=== PATIENT | female | born 1965 | race African-American/Black ===

== ENCOUNTER 2019-08-27 22:30 | Emergency (ER) | payer BC, OTHER ==
--- OUTSIDE RECORDS SUMMARY | 2019-08-27 22:33 | XMS REPORT | Continuity of Care Document ---
:1965 Author Organization [facility] t Address [address] [place] [address] [address]. Pat[address]io [address] [place] [address] Care Team Providers Name Role Phone Arturo ALEGRIA, Crispin Primary Care Physician Unavailable Ángel GORE Attending Clinician Unavailable Ángel GORE Admitting Clinician Unavailable Problems Condition Condition Condition Status Onset Resolution Last Treating Co mments Source Name Details Category Date Date Treatment Clinician Date Ventral Ventral Disease Active [facility]: Medical 00 [place] Allergies, Adverse Reactions, Alerts Allergy Allergy Status Severity Reaction(s) Onset Inactive Treating Comm ents Source Name Type Date Date Clinician Shellfis Drug Active Nausea Only, eyes [facility] Allergy Swelling 4[facility]09 [facility] - Containi 00:00: Medical ng 00 [place] Products Penicill Drug Active Itching, [facility] Allergy Rash 2-18 [facility] 00:[facility]: Medical 00 [place] Family History Family Member Diagnosis Comments Start Date Stop Date Source Natural mother COPD [facility] Social History Social Habit Start Date Stop Date Quantity Comments Source Sex Assigned At [facility] Smoking Status Start Date Stop Date Source Never smoker [facility] Medications Ordered Filled Start Stop Current Ordering Indication Dosage Frequency Signature Comments Components Source Medication Medication Date Date Medication? Clinician (SIG) Name Name dicyclomine Yes 10mg Take [address] [facility] (BENTYL) 10 4-23 by mouth 4 Jazz kes - MG capsule 14:27: (four) Medic al 26 times Center daily as needed . naproxen 2018-0 Yes 500mg Take [address] [facility] (NAPROSYN) 3-02 mg by [facility] - 500 MG 09:36: mouth as Medical tablet 46 needed. [place] hydroCHLORO 2018-0 Yes 25mg Q.5W Take [address] [facility] thiazide 3-02 by mouth [facility] - (HYDRODIURI 09:36: twice a Med ical L) 12.5 MG 46 week. [place] tablet multivitami 2018-0 Yes 1{tbl} QD Take [address] n 3-02 tablet by [facility] - (MULTIVITAM 09:36: mouth Medic al IN) per 46 daily. [place] tablet METAXALONE 2013-0 Yes 800mg Take [address] ORAL 4-09 mg by [facility] - 10:32: mouth as Medical 27 needed. [place] Procedures This patient has no known procedures. Results Test Description Test Time Test Comments Results Result Comments Source TISSUE EXAM 2017-06-11 Surgical Pathology 13:49:00 Report Case: [id number] Authorizing Provider: Papi Gore MD Collected: 06/10/2017 1358 Ordering Location: [facility] Endoscopy Received: 06/10/2017 1552 Services Pathologist: Andry Vinson MD Specimens: A) - Duodenum, random B) - Biopsy, Gastric C) - Polyp, Colon - Right/Ascending D) - Rectum A. DUODENUM, BIOPSY: - DUODENAL MUCOSA WITH PRESERVED VILLOUS ARCHITECTURE AND NO SIGNIFICANT DIAGNOSTIC ALTERATION - NEGATIVE FOR FEATURES OF CELIAC DISEASEB. STOMACH, BIOPSY: - CHRONIC ACTIVE HELICOBACTER PYLORI GASTRITIS - NEGATIVE FOR INTESTINAL METAPLASIA, DYSPLASIA, MALIGNANCYC. COLON, RIGHT/ASCENDING POLYP, BIOPSY: - TUBULAR ADENOMAD. RECTUM, BIOPSY: - COLORECTAL MUCOSA WITH NO SIGNIFICANT DIAGNOSTIC ABNORMALITY Signing Pathologist Direct Phone Line: [phone] ically signed by Andry Vinson MD on 06/11/2017 at 1:49 PMB. Warthin-starry stain for Helicobacter pylori is positive.[id number] 2Blood in stool, change in bowel habitsA. Duodenum random biopsy B. Gastric biopsyC. Right ascending colon polyp D. Rectum biopsy Specimen is received in two containers of formalin both labeled with the patient's information.Part A labeled "random duodenum biopsy" consists of three fragments of vargas tissue ranging from 0.1 to 0.3 cm submitted A1.Part B labeled "gastric biopsy" consists of two fragments of vargas-white soft tissue measuring 0.1 and 0.2 cm submitted B1. Part C labeled "right ascending colon polyp" consists of a 0.2 cm round fragment of vargas-white soft tissue submitted C1.Part D labeled "rectum biopsy" consists of two fragments of vargas tissue measuring 0.1 and 0.2 cm submitted D1. CG/bc Performed. HCG, QUANTITATIVE, 2017-06-10 14:32:00 Test Item Value Reference Range Interpretation Comme nts GONADOTROPIN, CHORIONIC (HCG) QUANT (ORVIBO) (test code = 649) < mI U/mL 0-10 Non- Females: <10 mIU/mL Females: Gestation Age Reference Range(mIU/mL) 0.2-1 Week 5-50 1-2 Weeks 50-500 2-3 Weeks 100-5,000 3-4Weeks 500-10,000 4-5 Weeks 1,000-50,000 5-6 Weeks 10,000-100,000 6-8 Weeks 15,000-200,000 2-3 Months 10,000-100,[id number] 13:12:00 Test Item Value Reference Range Interpretation Comments POC-POTASSIUM 3.8 meq/L 3.6-5.5 TESTED AT [facility] C 6720 (ORVIBO) (test code [facility] [address] = 1540)
--- OUTSIDE RECORDS SUMMARY | 2019-08-27 22:33 | XMS REPORT | Clinical Summary ---
:1965 Author Organization [facility] Address [address] [place] [address] Care Team Providers Name Role Phone Crispin Morris MD Primary Care Provider Unavailable Allergies Active Allergy Reactions Severity Noted Date Comments Penicillins Itching, Rash Low 04/06/2013 Shellfish Containing Products Nausea Only, Swelling eyes Medications Medication Sig Dispensed Refills Start Date End Date Status METAXALONE ORAL Take 800 mg 0 Ac tive by mouth as needed. dicyclomine (BENTYL) 10 MG Take 10 mg by 0 Active capsule mouth 4 (four) times daily as needed . naproxen (NAPROSYN) 500 MG Take 500 mg 0 Active tablet by mouth as needed. hydroCHLOROthiazide Take 25 mg by 0 Active (HYDRODIURIL) 12.5 MG mouth twice a tablet week. multivitamin (MULTIVITAMIN) Take 1 tablet 0 Active per tablet by mouth daily. Active Problems Problem Noted Date Ventral hernia 06/02/2013 Family History Medical History Relation Name Comments COPD Mother Relation Name Status Comments Mother Social History Tobacco Use Types Packs/Day Years Used Date Never Smoker Smokeless Tobacco: Never Used Alcohol Use Drinks/Week oz/Week Comments No Sex Assigned at Date Recorded Not on file Job Start Date Occupation Industry Not on file Not on file Not on file Travel History Travel Start Travel End No recent travel history available. Last Filed Vital Signs Not on file Plan of Treatment Not on file Implants Implanted Type Area Occupational Therapy Instructor Device Shelf Model / Identifier Expiration Date Ser ial / Lot Patch,Hernia Ventralex St Large [place] W/Strap 3.2 (8.0cm) - [id number] Mesh N/A: Abdomen 12/17/2014 [id number] / Implanted: Qty: 1 on 06/02/2013 by Jonathon Ortez MD / [id number] Results Not on fileafter 08/26/2018 Insurance Payer Benefit Plan / Group Subscriber ID Type Phone A ddress [employer] - [employer] C[employer] [facility] xxxxxxxxxxx HMO/POS Advance Directives For more information, please contact:[id number] [place], [place] [phone] Code Status Date Activated Date Inactivated Comments Code ONE 06/02/2013 11:53 AM 06/03/2013 1:22 AM All possib le means of support, including: cardi ac massage, mechanical venti lation, and defibrillation w ill be used to support life.
[2019-08-28] MEDS ORDERED: ACETAMINOPHEN 500 MG TAB ONE (00:33)
[2019-08-28 00:56] LABS: Basophils % 0.5 % (0-1.3); Hematocrit 40.4 % (36.0-45.0); Lymphocytes % 47.3 % (15.3-44.8); MPV 10.6 fL (7.6-11.3); RBC Red Blood Cell Count 4.42 M/uL (3.86-4.86)
[2019-08-28 01:05] LABS: Albumin 3.2 g/dL (3.4-5.0); Bilirubin Total 0.4 mg/dL (0.2-1.0); Potassium 4.1 mmol/L (3.5-5.1); Protein, Total 7.9 g/dL (6.4-8.2)
--- NOTE | 2019-08-28 02:49 | EDPHYS ---
Physician Documentation [facility] Name: Ruma Gallego Age: 54 yrs Sex: Female : 1965 Arrival Date: 08/27/2019 Time: 22:43 Bed 7 Private MD: ED Physician Bryant Uriarte HPI: 08/27 00:58 This 54 yrs old Black Female presents to ER via Ambulatory with complaints of Cough, jmm Headache. 00:58 The patient or guardian reports cough. Onset: The symptoms/episode began/occurred jmm gradually, 2 day(s) ago. Modifying factors: The symptoms are alleviated by nothing, the symptoms are aggravated by nothing. This is a 54 year old female that presents to the ED with a frontal headache beginning 2 days ago. Denies fever but admits to a mild cough. Denies sore throat, vomiting, chest pain, shortness of breath. . Historical: - Allergies: 00:35 No Known Allergies; ea - Home Meds: 00:35 None [Active]; ea - Immunization history:: Adult Immunizations up to date. - Social history:: Smoking status: unknown. ROS: 00:58 ENT: Negative for injury, pain, and discharge, Cardiovascular: Negative for chest pain, jmm palpitations, and edema. 00:58 Abdomen/GI: Negative for abdominal pain, nausea, vomiting, diarrhea, and constipation. 00:58 Constitutional: Positive for malaise. 00:58 Respiratory: Positive for cough. 00:58 Neuro: Positive for headache. 00:58 All other systems are negative. Exam: 00:58 Constitutional: This is a well developed, well nourished patient who is awake, alert, jmm and in no acute distress. 00:58 Eyes: EOMI, no conjunctival erythema appreciated ENT: Moist Mucus Membranes Neck: Trachea midline, Supple Chest/axilla: Normal chest wall appearance and motion. Cardiovascular: Regular rate and rhythm. No edema appreciated Respiratory: Normal respirations, no respiratory distress appreciated Abdomen/GI: Non distended, soft Back: Normal ROM Skin: General appearance color normal MS/ Extremity: Moves all extremities, no obvious deformities appreciated, no edema noted to the lower extremities Neuro: Awake and alert, normal gait Psych: Behavior is normal, Mood is normal, Patient is cooperative and pleasant 00:58 Head/face: Noted is Sinus tenderness, that is mild, is located over the right frontal sinus and right ethmoid sinus. Vital Signs: 08/26 22:52 BP 155 / 72; Pulse 92; Resp 18; Temp 97.2; Pulse Ox 97% on R/A; sg 08/27 00:05 BP 139 / 87 LA Sitting (auto/reg); Pulse 74 MON; Resp 22 S; Temp 99.8(A); Pulse Ox 97% ds4 on R/A; Weight 172.37 kg; Height 5 ft. 4 in. (162.56 cm); 02:50 BP 143 / 82; Pulse 78; Resp 20; Pulse Ox 99% on R/A; ea 00:05 Body Mass Index 65.23 (172.37 kg, 162.56 cm) ds4 MDM: 00:16 Patient medically screened. [facility] 02:46 Data reviewed: vital signs, nurses notes. Counseling: I had a detailed discussion with deneen the patient and/or guardian regarding: the historical points, exam findings, and any diagnostic results supporting the discharge/admit diagnosis, lab results, radiology results, the need for outpatient follow up, to return to the emergency department if symptoms worsen or persist or if there are any questions or concerns that arise at home. ED course: Patient;s neck is supple. I do not suspect meningitis. Patient refused strep and covid swab. Patient will follow up with pcp and otherwise given strict return precautions. Patient understood and agrees with the plan of care. . 08/27 00:18 Order name: CBC with Diff; Complete Time: 01:08 [facility] 08/27 00:18 Order name: CMP; Complete Time: 01:08 [facility] 08/27 00:18 Order name: Strep [facility] 08/27 00:18 Order name: [place] Screen Profile; Complete Time: 01:19 [facility] 08/27 00:18 Order name: COVID-19 [facility] 08/27 00:18 Order name: CT Head Brain wo Cont [facility] 08/27 00:18 Order name: Saline Lock; Complete Time: 02:49 [facility] Administered Medications: 00:34 Drug: Tylenol 1000 mg Route: PO; rv 03:05 Follow up: Response: No adverse reaction ea Disposition: 04:26 Co-signature as Attending Physician, Bryant Uriarte MD. [email or web address] Disposition: 08/28/19 02:48 Discharged to Home. Impression: Viral Illness. - Condition is Stable. - Discharge Instructions: COVID-19. - Medication Reconciliation Form, Thank You Letter, Antibiotic Education, Prescription Opioid Use form. - Follow up: Private Physician; When: 2 - 3 days; Reason: Recheck today's complaints, Continuance of care, Re-evaluation by your physician. Signatures: Dispatcher [employer] EDMS Sudhir Espitia PA PA jmm Antunez, Elena, RN RN ea Vicente, Ronaldo, RN RN rv Holmes, Maurice, MD MD [email or web address] Corrections: (The following items were deleted from the chart) 03:06 02:48 08/28/2019 02:48 Discharged to Home. Impression: Viral Illness. Condition is ea Stable. Forms are Medication Reconciliation Form, Thank You Letter, Antibiotic Education, Prescription Opioid Use. Follow up: Private Physician; When: 2 - 3 days; Reason: Recheck today's complaints, Continuance of care, Re-evaluation by your physician. soumya
--- NOTE | 2019-08-28 02:49 | ER ---
Nurse's Notes [facility] Name: Ruma Gallego Age: 54 yrs Sex: Female : 1965 Arrival Date: 08/27/2019 Time: 22:43 Bed 7 Private MD: Diagnosis: Viral Illness Presentation: 08/26 22:52 Acuity: SORAYA 3 sg 22:52 Chief complaint: Patient states: Cough and headache that began a day or two ago, sg reports just not feeling well, denies N/V/D/Fever reports feeling chilled. Coronavirus screen: Patient reports a cough. Patient denies shortness of breath or difficulty breathing. Patient denies measured and/or subjective temperature greater than 100.4F prior to today's visit. Patient denies travel on a cruise ship or to a country the [facility] currently lists as an affected area. Patient denies contact with known and/or suspected case of COVID-19. Ebola Screen: Patient negative for fever greater than or equal to 101.5 degrees Fahrenheit, and additional compatible Ebola Virus Disease symptoms Patient denies exposure to infectious person. Patient denies travel to an Ebola-affected area in the 21 days before illness onset. No symptoms or risks identified at this time. Initial Sepsis Screen: Does the patient meet any 2 criteria? No. Patient's initial sepsis screen is negative. Does the patient have a suspected source of infection? No. Patient's initial sepsis screen is negative. Risk Assessment: Do you want to hurt yourself or someone else? Patient reports no desire to harm self or others. Onset of symptoms was August 25, 2019. Care prior to arrival: None. 22:52 Method Of Arrival: Ambulatory sg Triage Assessment: 08/27 00:36 Headache History: The patient has had previous headaches. General: Appears in no ea apparent distress. General: Behavior is appropriate for age. Pain: Complains of pain in forehead. Historical: - Allergies: 00:35 No Known Allergies; ea - Home Meds: 00:35 None [Active]; ea - Immunization history:: Adult Immunizations up to date. - Social history:: Smoking status: unknown. Screenin:33 Abuse screen: Denies threats or abuse. Nutritional screening: No deficits noted. ea Tuberculosis screening: No symptoms or risk factors identified. Fall Risk None identified. Assessment: 00:32 Reassessment: Pt refused covid and strep swabs. ea 00:34 General: Appears in no apparent distress. Behavior is calm, cooperative, appropriate ea for age. Pain: Complains of pain in forehead. Neuro: Level of Consciousness is awake, alert, obeys commands, Oriented to person, place, time, situation. Cardiovascular: Patient's skin is warm and dry. Respiratory: Airway is patent Respiratory effort is even, unlabored, Respiratory pattern is regular, symmetrical. Derm: Skin is pink, warm \T\ dry. 03:03 Reassessment: Patient and/or family updated on plan of care and expected duration. Pain ea level reassessed. Patient is alert, oriented x 3, equal unlabored respirations, skin warm/dry/pink. Discharge instruction given to patient, verbalized the understanding of instruction. Pt left ED via wheelchair per tech. Pt tolerating well. Vital Signs: 08/26 22:52 BP 155 / 72; Pulse 92; Resp 18; Temp 97.2; Pulse Ox 97% on R/A; sg 08/27 00:05 BP 139 / 87 LA Sitting (auto/reg); Pulse 74 MON; Resp 22 S; Temp 99.8(A); Pulse Ox 97% ds4 on R/A; Weight 172.37 kg; Height 5 ft. 4 in. (162.56 cm); 02:50 BP 143 / 82; Pulse 78; Resp 20; Pulse Ox 99% on R/A; ea 00:05 Body Mass Index 65.23 (172.37 kg, 162.56 cm) ds4 ED Course: 08/26 22:43 Patient arrived in ED. ds1 22:52 Triage completed. sg 23:05 Arm band placed on. sg 23:50 Sudhir Espitia PA is PHCP. jmm 23:50 Bryant Uriarte MD is Attending Physician. jmm 23:55 Drew Bhatia RN is Primary Nurse. rv 08/27 00:34 Patient has correct armband on for positive identification. Bed in low position. Call ea light in reach. Side rails up X2. 00:34 Inserted saline lock: 20 gauge in right antecubital area, using aseptic technique. rv Blood collected. 01:08 CT Head Brain wo Cont In Process Unspecified. EDMS 03:04 No provider procedures requiring assistance completed. IV discontinued, intact, ea bleeding controlled, No redness/swelling at site. Pressure dressing applied. Administered Medications: 00:34 Drug: Tylenol 1000 mg Route: PO; rv 03:05 Follow up: Response: No adverse reaction ea Outcome: 02:48 Discharge ordered by . soumya 03:04 Discharged to home ambulatory. joanna 03:04 Condition: stable 03:04 Discharge instructions given to patient, Instructed on discharge instructions, follow up and referral plans. Demonstrated understanding of instructions, follow-up care. 03:06 Patient left the ED. ea Signatures: Dispatcher [employer] EDJesse Trivedi, RN RN Sudhir Tyler PA PA jmm Sanford, Demi ds1 Natan Kirk ds4 Amalia Levine RN RN ea Vicente, Ronaldo RN RN rv
[2019-08-28 03:16] VITALS: TEMP 99.8
[2019-08-28 03:18] VITALS: BP 143/82; O2SAT 99
--- NOTE | 2019-08-28 17:05 | RAD REPORT ---
EXAM DESCRIPTION: CT - Head Brain Wo Cont - 08/28/2019 3:42 am CLINICAL HISTORY: 54 years Female HEADACHE TECHNIQUE: Contiguous axial CT images obtained through the brain without IV contrast. Coronal and sa gittal reformats also provided. This CT exam was performed according to our departmental dose-optimization program, which includes on e or more of the following dose reduction techniques: automated exposure control, adjustment of the m A and/or kV according to patient size, and/or use of iterative reconstruction technique. COMPARISON: No prior exams provided for comparison. FINDINGS: There is no intracranial hemorrhage, extra-axial collection, or acute transcortical infarction. The v entricles are normal in size and contour without mass-effect or midline shift. Osseous structures are normal. The paranasal sinuses and mastoid air cells are clear. IMPRESSION: No acute intracranial abnormalities. Electronically signed by: Terrie Linda MD 08/28/2019 1:13 AM CDT Due to temporary technical issues with the PACS/Fluency reporting system, reports are being signed by the in house radiologist without review as a courtesy to ensure prompt reporting. The interpreting r adiologist is fully responsible for the content of the report.
== END 2019-08-28 03:06 | disposition home or self-care (01) ==
LOC: ER 22:30
DX: B34.9 Viral infection, unspecified (principal)
CPT/HCPCS: 36415; 70450; 80053; 85025; 86308; 99284

== ENCOUNTER 2023-06-13 11:25 | Emergency (ER) | payer OTHER ==
[2023-06-13] MEDS ORDERED: KETOROLAC 30 MG/ML INJ ONE (12:53)
--- NOTE | 2023-06-13 13:32 | RAD REPORT ---
EXAM DESCRIPTION: CT - Head C Spine Mpr Wo Con - 06/13/2023 1:13 pm CLINICAL HISTORY: Head and neck injury status post trauma. Head and neck pain COMPARISON: None. TECHNIQUE: Computed axial tomography of the head and cervical spine was obtained. Sagittal and coronal reconstruction was performed. All CT scans are performed using dose optimization technique as appropriate and may include automated exposure control or mA/KV adjustment according to patient size. FINDINGS: A few of the images are degraded by artifact. An intracranial bleed is not seen. The ventricles are normal in caliber. No significant hypodensity within the brain. An extra-axial fluid collection is not noted. Mild to moderate ethmoid sinusitis A cervical fracture is not visualized. No dislocation is noted. Bifid spinous process C7 IMPRESSION: No acute intracranial abnormality is seen. A cervical fracture is not visualized. If the patient continues to have symptoms to suggest intracranial /spinal cord pathology then MRI wou ld be recommended
--- NOTE | 2023-06-13 13:41 | EDPHYS ---
Physician Documentation [facility] Name: Ruma Gallego Age: 57 yrs Sex: Female : 1965 Arrival Date: 06/13/2023 Time: 11:25 Bed 9 Private MD: ED Physician Andrey Wei Historical: - Allergies: 06/12 11:35 PENICILLINS; aa5 11:35 SHELLFISH; aa5 - Home Meds: 13:26 None [Active]; tl4 - PMHx: 11:35 None; aa5 - PSHx: 13:26 None; tl4 - Immunization history:: Adult Immunizations unknown. - Infectious Disease History:: Denies. - Social history:: Smoking status: Patient denies any tobacco usage or history of. Vital Signs: 11:34 BP 160 / 70; Pulse 64; Resp 19 S; Temp 97.8(TE); Pulse Ox 100% on R/A; Weight 163.29 kg aa5 (R); Height 5 ft. 3 in. (R); 14:02 BP 135 / 78; Pulse 62; Resp 16; Temp 98.1; Pulse Ox 98% on R/A; tl4 11:34 Body Mass Index 63.77 (163.29 kg, 160.02 cm) aa5 MDM: 12:42 Patient medically screened. rt 06/12 12:47 Order name: CT Head C Spine; Complete Time: 13:33 rt Administered Medications: 12:55 Drug: Ketorolac IM 15 mg IM once Route: IM; Site: left ventrogluteal; tl4 Disposition Summary: 06/13/23 13:41 Discharge Ordered Notes: Location: Home rt Problem: new rt Symptoms: have improved rt Condition: Stable rt Diagnosis - Closed head injury rt Followup: rt - With: Private Physician - When: 2 - 3 days - Reason: Discharge Instructions: - Discharge Summary Sheet rt - Head Injury, Adult rt Forms: - Medication Reconciliation Form rt - Antibiotic Education rt - Prescription Opioid Use rt - Patient Portal Instructions rt - Leadership Thank You Letter rt Prescriptions: - Cyclobenzaprine 5 mg Oral Tablet - take 1 tablet ORAL route 3 times per day As needed; 15 tablet; Refills: 0, rt Product Selection Permitted Signatures: Dispatcher [employer] Daniela Reyes RN RN aa5 Andrey Wei MD MD rt Marck Calderón, RN RN tl4
--- NOTE | 2023-06-13 13:41 | ER ---
Nurse's Notes [facility] Name: Ruma Gallego Age: 57 yrs Sex: Female : 1965 Arrival Date: 06/13/2023 Time: 11:25 Bed 9 Private MD: Diagnosis: Closed head injury Presentation: 06/12 11:33 Chief complaint: Patient states: "the roof came down while I was showering last night aa5 and the curtain rizwan fell right onto the back of my head and my right shoulder". Pt c/o pain to back of head and right shoulder. 11:34 Coronavirus screen: At this time, the client does not indicate any symptoms associated aa5 with coronavirus-19. Ebola Screen: Patient denies travel to an Ebola-affected area in the 21 days before illness onset. Initial Sepsis Screen: Does the patient meet any 2 criteria? No. Patient's initial sepsis screen is negative. Does the patient have a suspected source of infection? No. Patient's initial sepsis screen is negative. Risk Assessment: Do you want to hurt yourself or someone else? Patient reports no desire to harm self or others. Onset of symptoms was May 2023. 11:34 Acuity: SORAYA 4 aa5 11:34 Method Of Arrival: Ambulatory aa5 Historical: - Allergies: 11:35 PENICILLINS; aa5 11:35 SHELLFISH; aa5 - Home Meds: 13:26 None [Active]; tl4 - PMHx: 11:35 None; aa5 - PSHx: 13:26 None; tl4 - Immunization history:: Adult Immunizations unknown. - Infectious Disease History:: Denies. - Social history:: Smoking status: Patient denies any tobacco usage or history of. Screenin:49 [facility] ED Fall Risk Assessment (Adult) History of falling in the last 3 months, tl4 including since admission No falls in past 3 months (0 pts) Confusion or Disorientation No (0 pts) Intoxicated or Sedated No (0 pts) Impaired Gait No (0 pts) Mobility Assist Device Used No (0 pt) Altered Elimination No (0 pt) Score/Fall Risk Level 0 - 2 = Low Risk Oriented to surroundings, Maintained a safe environment, Educated pt \\T\\ family on fall prevention, incl call for assistance when getting out of bed, Assessed \\T\\ reinforced patient's understanding of fall precautions. Abuse screen: Denies threats or abuse. Denies injuries from another. Nutritional screening: No deficits noted. Tuberculosis screening: No symptoms or risk factors identified. Assessment: 12:47 General: Appears in no apparent distress. Behavior is calm, cooperative. Pain: tl4 Complains of pain in back of head and back of neck. Neuro: Level of Consciousness is awake, alert, obeys commands, Oriented to person, place, time, situation, Moves all extremities. Full function Gait is steady, Speech is normal, Denies weakness blurred vision dizziness, paresthesias numbness. Cardiovascular: Capillary refill < 3 seconds Patient's skin is warm and dry. Pulses are palpable in right radial artery and left radial artery are 2+ in right radial artery and left radial artery. Respiratory: Airway is patent Respiratory effort is even, unlabored, Respiratory pattern is regular, symmetrical, Breath sounds are clear bilaterally. GI: No signs and/or symptoms were reported involving the gastrointestinal system. : No signs and/or symptoms were reported regarding the genitourinary system. EENT: No signs and/or symptoms were reported regarding the EENT system. Derm: No signs and/or symptoms reported regarding the dermatologic system. Musculoskeletal: Reports pain in back of head and back of neck. 14:11 Reassessment: No changes from previously documented assessment. Patient and/or family tl4 updated on plan of care and expected duration. Pain level reassessed. Patient is alert, oriented x 3, equal unlabored respirations, skin warm/dry/pink. Vital Signs: 11:34 BP 160 / 70; Pulse 64; Resp 19 S; Temp 97.8(TE); Pulse Ox 100% on R/A; Weight 163.29 kg aa5 (R); Height 5 ft. 3 in. (R); 14:02 BP 135 / 78; Pulse 62; Resp 16; Temp 98.1; Pulse Ox 98% on R/A; tl4 11:34 Body Mass Index 63.77 (163.29 kg, 160.02 cm) aa5 ED Course: 11:29 Patient arrived in ED. im 11:32 Arm band placed on. aa5 11:34 Triage completed. aa5 12:30 Andrey Wei MD is Attending Physician. rt 12:47 Marck Calderón RN is Primary Nurse. tl4 12:49 Patient has correct armband on for positive identification. Bed in low position. Call tl4 light in reach. Side rails up X 1. Provided Education on: ED process. Client placed on continuous cardiac and pulse oximetry monitoring. NIBP monitoring applied. Door closed. Noise minimized. Lights dimmed. Moved to private room. Warm blanket given. Pillow given. 12:50 No provider procedures requiring assistance completed. Patient did not have IV access tl4 during this emergency room visit. 13:14 CT Head C Spine In Process Unspecified. EDMS Administered Medications: 12:55 Drug: Ketorolac IM 15 mg IM once Route: IM; Site: left ventrogluteal; tl4 Medication: 12:49 VIS not applicable for this client. tl4 Outcome: 13:41 Discharge ordered by . rt 14:05 Discharged to home ambulatory, tl4 14:05 Condition: stable 14:05 Discharge instructions given to patient, Instructed on discharge instructions, follow up and referral plans. medication usage, Demonstrated understanding of instructions, follow-up care, medications, Prescriptions given X 1, 14:12 Patient left the ED. tl4 Signatures: Dispatcher [employer] EDMS Daniela Bunch RN RN aa5 Andrey Wei MD MD rt Chary Elkins Marck Calderón RN RN tl4 Corrections: (The following items were deleted from the chart) 11:34 11:33 Chief complaint: Patient states: "the roof came down while I was aa5 aa5
[2023-06-13 14:40] VITALS: BP 135/78; TEMP 98.1; O2SAT 98
== END 2023-06-13 14:12 | disposition home or self-care (01) ==
LOC: ER 11:25
DX: S09.90XA Unspecified injury of head, initial encounter (principal); M54.2 Cervicalgia; M25.511 Pain in right shoulder; Z88.0 Allergy status to penicillin; Z91.013 Allergy to seafood
CPT/HCPCS: 70450; 72125

== ENCOUNTER 2024-04-25 12:19 | Emergency (ER) | payer OTHER ==
--- NOTE | 2024-04-25 13:02 | RAD REPORT ---
Procedure: Chest Single View HISTORY: Cough COMPARISON: none FINDINGS: The lungs appear clear of acute infiltrate. No significant pleural effusion noted. The heart is normal size. IMPRESSION: No acute abnormality is displayed.
[2024-04-25] MEDS ORDERED: ASPIRIN 81 MG CHEWABLE TABLET ONE (13:15)
[2024-04-25] MEDS ORDERED: FAMOTIDINE 20 MG/2 ML VIAL IV ONE (13:15)
[2024-04-25 13:34] LABS: Absolute Eosinophils 0.2 K/uL (0-0.5); Absolute Lymphocytes (CBC) 2.8 K/uL (0.7-4.9); Absolute Monocytes 0.6 K/uL (0.1-1.3); Basophils % 0.7 % (0-1.3); Eosinophils % 2.9 % (0-4.4); Hematocrit 39.9 % (36.0-45.0); Hemoglobin 12.8 g/dL (12.0-15.0); Lymphocytes % 42.2 % (15.3-44.8); MCH 29.7 pg (27.0-35.0); MCHC 32.2 g/dL (32.0-36.0); MCV 92.1 fL (80-100); MPV 9.7 fL (7.6-11.3); Neutrophils % 45.2 % (41.7-73.7); Nucleated Red Blood Cells % 0.1 % (0-0); Platelets 291 thou/uL (152-406); RBC Red Blood Cell Count 4.33 M/uL (3.86-4.86); Red Cell Distribution Width 13.3 % (12.1-15.2)
[2024-04-25 13:39] LABS: PT Prothrombin Time 11.4 SECONDS (10-13.0)
[2024-04-25 13:53] LABS: ALT/SGPT 21 U/L (13-56); AST/SGOT 21 U/L (15-37); Albumin/Globulin Ratio 0.6 (1.1-1.8); Alkaline Phosphatase 93 U/L (45-117); Anion Gap 6.8 mEq/L (5.0-15.0); BUN Blood Urea Nitrogen 13 mg/dL (7-18); Bicarbonate 29 mEq/L (21-32); Bilirubin Total 0.3 mg/dL (0.2-1.0); Globulin 5.2 g/dL (2.3-3.5); Glomerular Filtration Rate 77 ml/min (=/>90); Glucose Level 85 mg/dL (74-106); Lipase 69 U/L (13-75); Magnesium 2.1 mg/dL (1.6-2.4); NT PRO-BNP 23 pg/mL (<125); Potassium 3.8 mEq/L (3.5-5.1); Protein, Total 8.2 g/dL (6.4-8.2); Sodium Level 138 mEq/L (136-145); Troponin High Sensitivity 5.4 pg/mL (<58.9)
[2024-04-25 13:55] LABS: Bilirubin Direct < 0.2 mg/dL (0-0.2); Bilirubin Indirect, Calculated 0.1 mg/dL (0.2-0.8)
[2024-04-25] MEDS ORDERED: DIPHENHYDRAMINE 50 MG/ML VIAL ONE (15:55)
[2024-04-25] MEDS ORDERED: METHYLPREDNISOLONE 125 MG INJ ONE (15:55)
[2024-04-25 16:37] LABS: Specific Gravity > 1.030 (1.005-1.030); Sqamous Epithelial <5 /HPF (None Seen); Urine Bacteria <20 /HPF (<20); Urine Bilirubin NEGATIVE (Negative); Urine Blood Negative (Negative); Urine Clarity Extremely Turbid (Clear); Urine Color Yellow (Yellow); Urine Culture Reflex Order REFLEXED; Urine Glucose NEGATIVE (Negative); Urine Ketones NEGATIVE (Negative); Urine Microscopic Reflex YN ORDER UMIC; Urine Mucus Slight /HPF (None Seen); Urine Nitrite NEGATIVE (Negative); Urine Protein TRACE (Negative); Urine Urobilinogen Normal (Normal); Urine WBC 20-50 /HPF (<5)
--- NOTE | 2024-04-25 16:55 | RAD REPORT ---
EXAMINATION: CTA CHEST PE CLINICAL INDICATION: Chest pain TECHNIQUE: 100 cc 370 Isovue administered intravenously. This examination was performed according to an angiographic protocol with 3D post-processing. This involves 3D reconstructions, MIPs, volume rendered images and/or shaded surface rendering. One or more of the following dose reduction techniqu es were used: Automated exposure control, adjustment of the mA and/or kV according to patient size, and/or iterative reconstruction. Unless otherwise specified, incidental findings do not require dedic ated imaging follow-up. [id number]. COMPARISON: No prior exam. FINDINGS: Suboptimal opacification pulmonary arteries. No gross central pulmonary embolus seen. An aortic aneurysm not noted. No pleural effusion. No pericardial effusion. Calcified granuloma left lung. IMPRESSION: Suboptimal opacification pulmonary arteries. No gross central pulmonary embolus seen
[2024-04-25] MEDS ORDERED: CEFTRIAXONE 1000 MG/VIAL ONE (17:06)
[2024-04-25] MEDS ORDERED: CIPROFLOXACIN HCL 500 MG TAB ONE (17:07)
[2024-04-25] MEDS ORDERED: NA CHLORIDE 0.9% 100 ML ONE (17:07)
--- NOTE | 2024-04-25 17:42 | ER ---
Nurse's Notes [facility] Name: Ruma Gallego Age: 58 yrs Sex: Female : 1965 Arrival Date: 04/25/2024 Time: 12:19 Bed 7 Private MD: Diagnosis: Chest pain, unspecified;Obesity, unspecified;UTI/ Urinary tract infection, site not specified Presentation: 04/25 12:32 Chief complaint: Patient states: LEFT CHEST PAIN X 4 DAYS NOT GOING AWAY. STATES HAS db TENDERNESS. TRIED ANTACIDS NOT HELPING. FEELS PRESSURE "LIKE SOMEBODY'S PUSHING DOWN". Coronavirus screen: Client denies travel out of the [place] in the last 14 days. At this time, the client does not indicate any symptoms associated with coronavirus-19. Ebola Screen: Patient negative for fever greater than or equal to 101.5 degrees Fahrenheit, and additional compatible Ebola Virus Disease symptoms Patient denies exposure to infectious person. Patient denies travel to an Ebola-affected area in the 21 days before illness onset. No symptoms or risks identified at this time. Initial Sepsis Screen: Does the patient meet any 2 criteria? No. Patient's initial sepsis screen is negative. Does the patient have a suspected source of infection? No. Patient's initial sepsis screen is negative. Risk Assessment: Do you want to hurt yourself or someone else? Patient reports no desire to harm self or others. Onset of symptoms was April 22, 2024. 12:32 Method Of Arrival: Ambulatory db 12:32 Acuity: SORAYA 2 db Triage Assessment: 12:35 General: Appears in no apparent distress. comfortable, Behavior is calm, cooperative. db Pain: Complains of pain in chest. Neuro: Level of Consciousness is awake, alert, obeys commands, Oriented to person, place, time, situation. Cardiovascular: Reports chest pain. Respiratory: Airway is patent Respiratory effort is even, unlabored, Respiratory pattern is regular, symmetrical. Historical: - Allergies: 12:35 PENICILLINS; db 12:35 SHELLFISH; db - PMHx: 12:35 Diabetes mellitus; db - Immunization history:: Adult Immunizations unknown. - Infectious Disease History:: Denies. - Social history:: Smoking status: Patient denies any tobacco usage or history of. - Family history:: Mother has/had cerebrovascular disease, heart disease, Father has/had diabetes, heart disease, Brother has/had CVA or TIA, heart disease. Screenin:40 [facility] ED Fall Risk Assessment (Adult) History of falling in the last 3 months, ap3 including since admission No falls in past 3 months (0 pts) Confusion or Disorientation No (0 pts) Intoxicated or Sedated No (0 pts) Impaired Gait No (0 pts) Mobility Assist Device Used No (0 pt) Altered Elimination No (0 pt) Score/Fall Risk Level 0 - 2 = Low Risk Oriented to surroundings, Maintained a safe environment, Educated pt \\T\\ family on fall prevention, incl call for assistance when getting out of bed, Assessed \\T\\ reinforced patient's understanding of fall precautions, Hourly rounding (assess needs \\T\\ fall precautionary measures) done, Used ambulatory aids as needed (educated on \\T\\ assisted with). Abuse screen: Denies threats or abuse. Nutritional screening: No deficits noted. Tuberculosis screening: No symptoms or risk factors identified. Assessment: 13:39 General: Appears in no apparent distress. Behavior is calm, cooperative, appropriate ap3 for age. Pain: Complains of pain in chest Pain radiates to right arm and left arm Pain currently is 7 out of 10 on a pain scale. at worst was 9 out of 10 on a pain scale. Pain began 4 days ago. Neuro: Level of Consciousness is awake, alert, obeys commands, Oriented to person, place, time, situation, Appropriate for age. Cardiovascular: Patient's skin is warm and dry. Respiratory: Airway is patent Respiratory effort is even, unlabored, Respiratory pattern is regular, symmetrical. Vital Signs: 12:32 BP 178 / 78; Pulse 71; Resp 18; Temp 98.1; Pulse Ox 100% ; Weight 163.29 kg; Height 5 db ft. 3 in. ; Pain 7/10; 13:43 BP 115 / 73; Pulse 70; Resp 18; Pulse Ox 98% on R/A; ap3 14:54 BP 127 / 73; Pulse 70; Resp 15; Pulse Ox 100% ; jl7 15:28 BP 142 / 71; Pulse 84; Resp 18; Pulse Ox 100% on R/A; ap3 16:52 BP 148 / 84; Pulse 70; Resp 15; Pulse Ox 100% ; jl7 18:44 BP 132 / 72; Pulse 70; Resp 18; Pulse Ox 100% on R/A; ap3 12:32 Body Mass Index 63.77 (163.29 kg, 160.02 cm) db 12:32 Pain Scale: Adult db ED Course: 12:21 Patient arrived in ED. im 12:31 Arvin Mary MD is Attending Physician. akin 12:35 Triage completed. db 12:35 Arm band placed on Patient placed. db 12:53 XRAY Chest (1 view) In Process Unspecified. EDMS 13:09 Lani Sweeney RN is Primary Nurse. jl7 13:39 Initial lab(s) drawn, by me, sent to lab. Inserted saline lock: 22 gauge in left ap3 antecubital area, using aseptic technique. Blood collected. Flushed with 10 mL NS. 13:41 Patient has correct armband on for positive identification. Bed in low position. Call ap3 light in reach. Side rails up X 1. Client placed on continuous cardiac and pulse oximetry monitoring. NIBP monitoring applied. patient monitor on. Pulse ox on. NIBP on. 13:41 Patient maintains SpO2 saturation greater than 95% on room air. ap3 16:44 CT Chest For PE Angio In Process Unspecified. EDMS 17:42 Gregory Banks MD is Referral Physician. akin 18:32 No provider procedures requiring assistance completed. IV discontinued, intact, ap3 bleeding controlled, No redness/swelling at site. Pressure dressing applied. 18:45 Provided Education on: discharge instructions. ap3 Administered Medications: 13:25 Drug: Aspirin PO Chewable Tablet 324 mg PO once; 81 mg tablets x 4 Route: PO; jl7 18:44 Follow up: Response: No adverse reaction ap3 13:25 Drug: Famotidine IVP 20 mg IVP once; dilute with 10 mL 0.9% NaCl; give over 2 minutes jl7 Route: IVP; Site: left antecubital; 18:43 Follow up: Response: No adverse reaction ap3 16:00 Drug: MethylPrednisoLONE IVP 125 mg IVP once Route: IVP; Site: left antecubital; jl7 18:43 Follow up: Response: No adverse reaction ap3 16:03 Drug: diphenhydrAMINE IVP 50 mg IVP once Route: IVP; Site: left antecubital; jl7 18:43 Follow up: Response: No adverse reaction ap3 17:19 Drug: Rocephin IV 1 grams IV at per protocol once; Given slow IV push per pharmacy jl7 instructions Route: IV; Rate: per protocol; Site: left antecubital; 18:43 Follow up: IV Status: Infusion continued ap3 17:19 Drug: Ciprofloxacin PO 500 mg PO once Route: PO; jl7 18:43 Follow up: Response: No adverse reaction ap3 18:45 Not Given ( ): [id number] mg Sub-Q once ap3 Medication: 18:32 VIS not applicable for this client. ap3 Outcome: 17:42 Discharge ordered by . akin 18:44 Condition: good ap3 18:44 Discharge instructions given to patient, Instructed on discharge instructions, follow up and referral plans. medication usage, Demonstrated understanding of instructions, follow-up care, medications, Prescriptions given X 3, 18:54 Discharged to home via wheelchair, ap3 18:54 Patient left the ED. ap3 Signatures: Dispatcher [employer] EDMS Arvin Mary MD MD cha Leal, Jahala RN RN jl7 Sailaja hKanna RN RN ap3 Ruthann Newton, Chary Nolen RN
--- NOTE | 2024-04-25 17:42 | EDPHYS ---
Physician Documentation [facility] Name: Ruma Gallego Age: 58 yrs Sex: Female : 1965 Arrival Date: 04/25/2024 Time: 12:19 Bed 7 Private MD: AMISHA Physician Arvin Mary HPI: 04/25 15:51 This 58 yrs old Black Female presents to ER via Ambulatory with complaints of Chest akin Pain. 15:51 The patient or guardian reports chest pain that is located primarily in the substernal akin area. Onset: 3 day(s) ago. The pain radiates to the left arm. Associated signs and symptoms: Pertinent positives: dizziness, headache. The chest pain is described as a pressure, squeezing. Duration: The patient or guardian reports multiple episodes, with no pattern. Modifying factors: The symptoms are alleviated by nothing. the symptoms are aggravated by nothing. Severity of pain: At its worst the pain was mild moderate in the emergency department the pain has resolved. The patient has experienced similar episodes in the past, multiple times. Historical: - Allergies: 12:35 PENICILLINS; db 12:35 SHELLFISH; db - PMHx: 12:35 Diabetes mellitus; db - Immunization history:: Adult Immunizations unknown. - Infectious Disease History:: Denies. - Social history:: Smoking status: Patient denies any tobacco usage or history of. - Family history:: Mother has/had cerebrovascular disease, heart disease, Father has/had diabetes, heart disease, Brother has/had CVA or TIA, heart disease. ROS: 15:51 Constitutional: Negative for fever, chills, and weight loss, Eyes: Negative for injury, akin pain, redness, and discharge, ENT: Negative for injury, pain, and discharge, Neck: Negative for injury, pain, and swelling, Abdomen/GI: Negative for abdominal pain, nausea, vomiting, diarrhea, and constipation, Back: Negative for injury and pain, : Negative for injury, bleeding, discharge, and swelling, MS/Extremity: Negative for injury and deformity, Skin: Negative for injury, rash, and discoloration, Neuro: Negative for headache, weakness, numbness, tingling, and seizure, Psych: Negative for depression, anxiety, suicide ideation, homicidal ideation, and hallucinations, Allergy/Immunology: Negative for hives, rash, and allergies, Endocrine: Negative for neck swelling, polydipsia, polyuria, polyphagia, and marked weight changes, Hematologic/Lymphatic: Negative for swollen nodes, abnormal bleeding, and unusual bruising, 15:51 Cardiovascular: Positive for chest pain, 15:51 Respiratory: Negative for cough, shortness of breath, Exam: 15:51 Constitutional: This is a well developed, well nourished patient who is awake, alert, akin and in no acute distress. Head/Face: Normocephalic, atraumatic. Eyes: Pupils equal round and reactive to light, extra-ocular motions intact. Lids and lashes normal. Conjunctiva and sclera are non-icteric and not injected. Cornea within normal limits. Periorbital areas with no swelling, redness, or edema. ENT: Nares patent. No nasal discharge, no septal abnormalities noted. Tympanic membranes are normal and external auditory canals are clear. Oropharynx with no redness, swelling, or masses, exudates, or evidence of obstruction, uvula midline. Mucous membranes moist. Neck: Trachea midline, no thyromegaly or masses palpated, and no cervical lymphadenopathy. Supple, full range of motion without nuchal rigidity, or vertebral point tenderness. No Meningismus. Chest/axilla: Normal chest wall appearance and motion. Nontender with no deformity. No lesions are appreciated. Cardiovascular: Regular rate and rhythm with a normal S1 and S2. No gallops, murmurs, or rubs. Normal PMI, no JVD. No pulse deficits. Respiratory: Lungs have equal breath sounds bilaterally, clear to auscultation and percussion. No rales, rhonchi or wheezes noted. No increased work of breathing, no retractions or nasal flaring. Abdomen/GI: Soft, non-tender, with normal bowel sounds. No distension or tympany. No guarding or rebound. No evidence of tenderness throughout. Back: No spinal tenderness. No costovertebral tenderness. Full range of motion. Skin: Warm, dry with normal turgor. Normal color with no rashes, no lesions, and no evidence of cellulitis. MS/ Extremity: Pulses equal, no cyanosis. Neurovascular intact. Full, normal range of motion., bilateral aka Neuro: Awake and alert, GCS 15, oriented to person, place, time, and situation. Cranial nerves II-XII grossly intact. Motor strength 5/5 in all extremities. Sensory grossly intact. Cerebellar exam normal. Normal gait. Psych: Awake, alert, with orientation to person, place and time. Behavior, mood, and affect are within normal limits. 15:51 Musculoskeletal/extremity: ROM: no acute changes, Circulation is intact in all extremities. Sensation intact. Compartment Syndrome exam of affected extremity: is normal. Weight bearing: able to fully bear weight, DVT Exam: No signs of deep vein thrombosis. no pain, no swelling, no tenderness, negative Homans' sign noted on exam, no appreciated bluish discoloration, no erythema, no increased warmth, Calves: are non-tender, have equal circumference, 15:56 ECG was reviewed by the Attending Physician. [facility] 17:26 ECG was reviewed by the Attending Physician. [facility] Vital Signs: 12:32 BP 178 / 78; Pulse 71; Resp 18; Temp 98.1; Pulse Ox 100% ; Weight 163.29 kg; Height 5 db ft. 3 in. ; Pain 7/10; 13:43 BP 115 / 73; Pulse 70; Resp 18; Pulse Ox 98% on R/A; ap3 14:54 BP 127 / 73; Pulse 70; Resp 15; Pulse Ox 100% ; jl7 15:28 BP 142 / 71; Pulse 84; Resp 18; Pulse Ox 100% on R/A; ap3 16:52 BP 148 / 84; Pulse 70; Resp 15; Pulse Ox 100% ; jl7 18:44 BP 132 / 72; Pulse 70; Resp 18; Pulse Ox 100% on R/A; ap3 12:32 Body Mass Index 63.77 (163.29 kg, 160.02 cm) db 12:32 Pain Scale: Adult db MDM: 12:31 Medical Screening Exam initiated akin 15:54 Differential diagnosis: abnormal EKG, acute myocardial infarction, acute pericarditis, akin anxiety, coronary artery disease chest wall pain, cholecystitis, Cholelithiasis esophagitis, gastroesophageal reflux disease (GERD), hiatal hernia, peptic ulcer disease, pleurisy, pulmonary embolus, stable angina, thoracic aortic disection, unstable angina. HEART Score: History: Slightly Suspicious (0), ECG: Normal (0), Age: > 45 and < 65 years (1), Risk Factors: > or = 3 Risk factors for atherosclerotic disease (2), [DM] [+ Family HX] [Obesity] Troponin: < or = 1 x Normal Limit (0). The patient was given aspirin in the Emergency Department. Data reviewed: vital signs, nurses notes, lab test result(s), EKG, radiologic studies, CT scan, plain films. Consideration of Admission/Observation Escalation of care including admission/observation considered. I considered the following discharge prescriptions or medication management in the emergency department Medications were administered in the Emergency Department. See MAR. Independent interpretation of the following test(s) in the Emergency Department EKG: See my EKG interpretation above. Test considered but Not performed: Ultrasound no 2 d echo. Care significantly affected by the following chronic conditions: Diabetes, Hypertension, Obesity. Counseling: I had a detailed discussion with the patient and/or guardian regarding the historical points, exam findings, and any diagnostic results supporting the discharge/admit diagnosis, lab results, radiology results. 04/25 12:33 Order name: Basic Metabolic Panel; Complete Time: 15:35 04/25 12:33 Order name: CBC with Diff; Complete Time: 15:35 04/25 12:33 Order name: LFT's; Complete Time: 15:35 04/25 12:33 Order name: Magnesium; Complete Time: 15:35 04/25 12:33 Order name: NT PRO-BNP; Complete Time: 15:35 04/25 12:33 Order name: PT-INR; Complete Time: 15:35 04/25 12:33 Order name: Troponin HS; Complete Time: 15:35 04/25 12:33 Order name: Lipase; Complete Time: 15:35 04/25 12:33 Order name: Urinalysis w/ reflexes; Complete Time: 16:56 04/25 15:57 Order name: Troponin HS; Complete Time: 17:42 04/25 16:43 Order name: Urine Culture EDMD 04/25 12:33 Order name: XRAY Chest (1 view); Complete Time: 15:35 04/25 15:51 Order name: CT Chest For PE Angio; Complete Time: 16:56 04/25 15:57 Order name: EK pm; Complete Time: 15:57 04/25 12:33 Order name: Cardiac monitoring; Complete Time: 13:25 04/25 12:33 Order name: EKG - Nurse/Tech; Complete Time: 12:44 /09 12:33 Order name: IV Saline Lock; Complete Time: 13: [facility] 04/25 12:33 Order name: Labs collected and sent; Complete Time: : [facility] 04/25 12:33 Order name: O2 Per Protocol; Complete Time: : [facility] 04/25 12:33 Order name: O2 Sat Monitoring; Complete Time: : [facility] 04/25 15:57 Order name: EKG - Nurse/Tech; Complete Time: 17:19 [facility] EC:56 Rate is 71 beats/min. Rhythm is regular. QRS [place] is Normal. AL interval is normal. QRS akin interval is normal. QT interval is normal. No Q waves. T waves are Normal. No ST changes noted. Clinical impression: Normal ECG and No evidence of ischemia. Interpreted by me. Reviewed by me. 17:26 Rate is 80 beats/min. Rhythm is regular. QRS [place] is Normal. AL interval is normal. QRS akin interval is normal. QT interval is normal. No Q waves. T waves are Normal. No ST changes noted. Clinical impression: Normal ECG and No evidence of ischemia. Interpreted by me. Reviewed by me. Administered Medications: 13:25 Drug: Aspirin PO Chewable Tablet 324 mg PO once; 81 mg tablets x 4 Route: PO; jl7 18:44 Follow up: Response: No adverse reaction ap3 13:25 Drug: Famotidine IVP 20 mg IVP once; dilute with 10 mL 0.9% NaCl; give over 2 minutes jl7 Route: IVP; Site: left antecubital; 18:43 Follow up: Response: No adverse reaction ap3 16:00 Drug: MethylPrednisoLONE IVP 125 mg IVP once Route: IVP; Site: left antecubital; jl7 18:43 Follow up: Response: No adverse reaction ap3 16:03 Drug: diphenhydrAMINE IVP 50 mg IVP once Route: IVP; Site: left antecubital; jl7 18:43 Follow up: Response: No adverse reaction ap3 17:19 Drug: Rocephin IV 1 grams IV at per protocol once; Given slow IV push per pharmacy jl7 instructions Route: IV; Rate: per protocol; Site: left antecubital; 18:43 Follow up: IV Status: Infusion continued ap3 17:19 Drug: Ciprofloxacin PO 500 mg PO once Route: PO; jl7 18:43 Follow up: Response: No adverse reaction ap3 18:45 Not Given ( ): [id number] mg Sub-Q once ap3 Disposition Summary: 04/25/24 17:42 Discharge Ordered Notes: Location: Home akin Problem: new akin Symptoms: have improved akin Condition: Stable akin Diagnosis - Chest pain, unspecified akin - Obesity, unspecified akin - UTI/ Urinary tract infection, site not specified akin Followup: akin - With: Private Physician - When: 1 - 2 days - Reason: Recheck today's complaints, Continuance of care, Re-evaluation by your physician Followup: akin - With: Gregory Banks MD - When: 1 - 2 days - Reason: Recheck today's complaints, Re-evaluation by your physician Discharge Instructions: - Discharge Summary Sheet akin - Nonspecific Chest Pain, Adult akin - Obesity, Adult akin - Urinary Tract Infection, Adult akin - Urinary Tract Infection, Adult, [id number] akin - Nonspecific Chest Pain, Adult, [id number] akin - Aspirin and Your Heart [facility] Forms: - Medication Reconciliation Form [facility] - Antibiotic Education [facility] - Prescription Opioid Use [facility] - Patient Portal Instructions [facility] - Leadership Thank You Letter [facility] Prescriptions: - Toprol XL 25 mg Oral Tablet - take 1 tablet ORAL route once daily; 20 tablet; Refills: 0, Product Selection [facility] Permitted - Cipro 500 mg Oral Tablet - take 1 tablet ORAL route every 12 hours for 7 days; 14 tablet; Refills: 0, [facility] Product Selection Permitted - Fluconazole 200 mg Oral tablet - take 1 tablet ORAL route once take one tablet weekly as symptoms presist; 3 akin tablet; Refills: 0, Product Selection Permitted Signatures: Dispatcher [employer] EDMS Arvin Mary MD MD cha Leal, Jahala RN RN jl7 Ruthann Newton RN RN Sailaja Hernandez RN ap3 Corrections: (The following items were deleted from the chart) 12:34 12:34 BASIC METABOLIC PANEL+C.LAB.BRZ ordered. EDMS EDMS 12:34 12:34 CBC+H.LAB.BRZ ordered. EDMS EDMS 12:34 12:34 HEPATIC FUNCTION+C.LAB.BRZ ordered. EDMS EDMS 12:34 12:34 MAGNESIUM+C.LAB.BRZ ordered. EDMS EDMS 12:34 12:34 PROBNP+C.LAB.BRZ ordered. EDMS EDMS 12:34 12:34 PROTIME (+INR)+COAG.LAB.BRZ ordered. EDMS EDMS 12:34 12:34 Troponin High Sensitivity+C.LAB.BRZ ordered. EDMS EDMS 12:34 12:34 LIPASE+C.LAB.BRZ ordered. EDMS EDMS 12:34 12:34 Urinalysis+U.LAB.BRZ ordered. EDMS EDMS 12:34 12:34 Chest Single View+RAD.RAD.BRZ ordered. EDMS EDMS
[2024-04-25 19:12] VITALS: TEMP 98.1
[2024-04-25 19:23] VITALS: O2SAT 100
[2024-04-25 19:27] VITALS: BP 132/72
--- NOTE | 2024-04-27 11:04 | EKG ---
Test Date: 2024-04-25 Test Time: 16:21:05 Diabetes Physician: ALP MEASUREMENT RESULTS: Intervals: Rate: 80 VA: 160 QRSD: 82 QT: 376 QTc: 433 [place]: P: 76 VA: 160 QRS: 62 T: 49 INTERPRETIVE STATEMENTS: Normal sinus rhythm Normal ECG Compared to ECG 04/25/2024 12:41:21 No significant changes Electronically Signed On 04-27-24 10:59:23 CDT by Suleiman Mcgee
--- NOTE | 2024-04-27 11:05 | EKG ---
Test Date: 2024-04-25 Test Time: 12:41:21 [employer]: ANNETTE MEASUREMENT RESULTS: Intervals: Rate: 71 VA: 156 QRSD: 76 QT: 378 QTc: 410 [place]: P: 37 VA: 156 QRS: 40 T: 55 INTERPRETIVE STATEMENTS: Normal sinus rhythm Normal ECG No previous ECG available for comparison Electronically Signed On 04-27-24 10:59:35 CDT by Suleiman Mcgee
== END 2024-04-25 18:54 | disposition home or self-care (01) ==
LOC: ER 12:19
DX: R07.9 Chest pain, unspecified (principal); N39.0 Urinary tract infection, site not specified; E66.9 Obesity, unspecified; E11.9 Type 2 diabetes mellitus without complications
CPT/HCPCS: 96365; 93005 ×2; 87088; 85025; 81001; 87086; 80048; 36415; 83735; 85610; 80076; 84484 ×2; 83690; 83880; 71275; 71045; 96375; 99285; Q9967; J1200; J2919; J0696